=== PATIENT | female | born 1960 ===

== ENCOUNTER 2017-03-31 11:00 | Emergency (ER) | payer OTHER ==
[2017-03-31 11:03] VITALS: BMI 23.6
[2017-03-31 11:04] VITALS: BP 167/92; PULSE 83; RESP 17; TEMP 98.7; O2SAT 98
--- NOTE | 2017-03-31 11:31 | ED PDOC ---
Lower Extremity Pain/Injury Time Seen by Provider: 03/31/17 11:16 Chief Complaint (Nursing): Lower Extremity Problem/Injury Chief Complaint (Provider): Fall injury History Per: Patient History/Exam Limitations: no limitations Onset/Duration Of Symptoms: Hrs (x1) Current Symptoms Are (Timing): Still Present Additional Complaint(s): Evelyn is a 57 y/o female who presents to the ED for evaluation of fall injuries sustained this morning. States that she slipped and fell onto her left knee, twisting the right ankle in the process, while going down stairs. No loss of consciousness or head trauma. Now presenting with pain to the left knee and right ankle. Denies any associated numbness, weakness, tingling, dizziness, headache, chest pain, shortness of breath, abdominal pain, or back pain. No foot pain. PMD: Provider TBD Past Medical History Reviewed: Historical Data, Nursing Documentation, Vital Signs Vital Signs: Last Vital Signs Temp 98.7 F 03/31/17 11:03 Pulse 83 03/31/17 11:03 Resp 17 03/31/17 11:03 BP 167/92 H 03/31/17 11:03 Pulse Ox 98 03/31/17 11:03 - Medical History PMH: No Chronic Diseases Denies: Chronic Kidney Disease - Surgical History Surgical History: Cholecystectomy ([facility] 2002) - Family History Family History: States: Unknown Family Hx - Social History Current smoker - smoking cessation education provided: Yes (Light) Alcohol: None Drugs: Denies - Home Medications Home Medications: Ambulatory Orders Medication Instructions Recorded Oxycodone HCl/Acetaminophen 5 - 325 mg PO Q4 PRN 11/04/14 [Percocet 325 mg-5 mg] - Allergies Allergies/Adverse Reactions: Allergies Allergy/AdvReac Type Severity Reaction Status Date / Time No Known Allergies Allergy Verified 08/17/14 11:54 Review of Systems ROS Statement: Except As Marked, All Systems Reviewed And Found Negative Constitutional: Negative for: Fever, Other (Head trauma, LOC) Cardiovascular: Negative for: Chest Pain Respiratory: Negative for: Shortness of Breath Gastrointestinal: Negative for: Nausea, Vomiting, Abdominal Pain, Diarrhea Genitourinary Female: Negative for: Dysuria Musculoskeletal: Positive for: Leg Pain (Left knee), Foot Pain (Right ankle). Negative for: Back Pain Neurological: Negative for: Weakness, Numbness, Headache, Dizziness Physical Exam - Reviewed Nursing Documentation Reviewed: Yes Vital Signs Reviewed: Yes - Physical Exam Appears: Positive for: Non-toxic, No Acute Distress Head Exam: Positive for: ATRAUMATIC, NORMAL INSPECTION, NORMOCEPHALIC Skin: Positive for: Normal Color, Warm, Dry Eye Exam: Positive for: EOMI, Normal appearance, PERRL Neck: Positive for: Normal, Painless ROM, Supple Cardiovascular/Chest: Positive for: Regular Rate, Rhythm. Negative for: Murmur Respiratory: Positive for: Normal Breath Sounds. Negative for: Respiratory Distress Pulses-Dorsalis Pedis (L): 2+ Pulses-Dorsalis Pedis (R): 2+ Gastrointestinal/Abdominal: Positive for: Normal Exam, Soft. Negative for: Tenderness Back: Positive for: Normal Inspection. Negative for: L CVA Tenderness, R CVA Tenderness, Vertebral Tenderness Extremity: Positive for: Swelling (to the right ankle at the lateral malleolus, with 1 cm abrasion to medial right ankle. Pain with ROM.), Other (Small abrasion to front of left knee). Negative for: Tenderness (to right knee or calf, or to left knee or calf), Calf Tenderness Neurologic/Psych: Positive for: Alert, Oriented. Negative for: Motor/Sensory Deficits - ECG O2 Sat by Pulse Oximetry: 98 (RA) Pulse Ox Interpretation: Normal - Radiology X-Ray: Interpreted by Me, Viewed By Me X-Ray Interpretation: Fracture (distal fibula and proximal fibula.) - Progress ED Course And Treament: 1243: Stable. AAOx3. Pain controlled. Ambulated. Fu with pcp. Medical Decision Making Medical Decision Making: Time: 11:24 Initial Plan: --Toradol 15 mg IM --X-Ray Left Knee --X-Ray Right Ankle --Pending reevaluation Scribe Attestation: Documented by Apryl Almaraz, acting as a scribe for Thuan Ewing MD Provider Scribe Attestation: All medical record entries made by the Scribe were at my direction and personally dictated by me. I have reviewed the chart and agree that the record accurately reflects my personal performance of the history, physical exam, medical decision making, and the department course for this patient. I have also personally directed, reviewed, and agree with the discharge instructions and disposition. Disposition - Clinical Impression Clinical Impression: Muscle contusion, Abrasion - Patient ED Disposition Is Patient to be Admitted: No Counseled Patient/Family Regarding: Studies Performed, Diagnosis, Need For Followup - Disposition Referrals: [facility] [Outside] - 04/01/17 Disposition: Routine/Home Disposition Time: 12:44 Condition: STABLE Additional Instructions: Return if not better in 3 days. Instructions: Abrasion (ED), Contusion in Adults (ED) Forms: [facility] ([place]i) Print Language: PERSIAN
--- NOTE | 2017-03-31 14:54 | RAD ---
PROCEDURE: Right Ankle Radiographs. HISTORY: Posttraumatic pain COMPARISON: None FINDINGS: BONES: Nondisplaced distal fibular fracture at and slightly above the ankle mortise. The finding is marked on the study for review. JOINTS: Normal. No osteoarthritis. Ankle mortise maintained. Talar dome intact SOFT TISSUES: Soft tissue swelling attests to the acuity of the fracture. OTHER FINDINGS: None. IMPRESSION: Acute fracture distal right fibula. Please note: No preliminary interpretation of this examination rendered by emergency department personnel (Physician and/or PA declined to provide preliminary report of their findings/ observations).
--- NOTE | 2017-03-31 16:03 | RAD ---
PROCEDURE: Right Knee Radiographs. HISTORY: Pain. No history of recent/ related trauma provided COMPARISON: None. FINDINGS: BONES: Normal. No fracture. JOINTS: Normal. No osteoarthritis. JOINT EFFUSION: None. OTHER FINDINGS: None. IMPRESSION: No significant or acute findings to account for/ related to the clinical presentation. Concordant results with the preliminary interpretation rendered by the emergency department physician procedure.
== END 2017-03-31 15:21 | disposition home or self-care (01) ==
LOC: H.ER 11:00
DX: S93.401A Sprain of unspecified ligament of right ankle, initial encounter (principal); S80.211A Abrasion, right knee, initial encounter; W10.9XXA Fall (on) (from) unspecified stairs and steps, initial encounter; Y92.89 Other specified places as the place of occurrence of the external cause
CPT/HCPCS: 29515; 73564; 73610; 96372; 99285; J1885